=== PATIENT | female | born 2000 | race Two or more races ===

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

== ENCOUNTER 2021-08-12 13:57 | Emergency (ER) | payer OTHER ==
[2021-08-12 14:03] VITALS: BP 105/70; PULSE 91; TEMP 98; BMI 32.0
== END 2021-08-12 17:04 | disposition home or self-care (01) ==
LOC: JERFT 13:57
DX: K02.9 Dental caries, unspecified (principal)
CPT/HCPCS: 99283-25

== ENCOUNTER 2021-09-18 18:06 | Emergency (ER) | payer OTHER ==
[2021-09-18 19:00] VITALS: BP 120/72; PULSE 107; TEMP 98.1; BMI 31.4
[2021-09-19 13:07] LABS: SARS-CoV-2 NAA Not Detected (Not Detected)
== END 2021-09-18 20:43 | disposition home or self-care (01) ==
LOC: JER 18:06
DX: J00 Acute nasopharyngitis [common cold] (principal)
CPT/HCPCS: 87804; 99283-25; C9803; U0003; U0005

== ENCOUNTER 2022-03-21 21:05 | Emergency (ER) | payer OTHER ==
[2022-03-21 21:12] VITALS: BP 107/73; PULSE 71; RESP 19; TEMP 97.8; BMI 34.5
[2022-03-21] MEDS ORDERED: DEXAMETHASONE 4 MG TABLET (FP) PO ONE (23:04)
[2022-03-21] MEDS ORDERED: FAMOTIDINE 10 MG TABLET PO ONE (23:04)
[2022-03-21] MEDS ORDERED: diphenhydrAMINE HCL 25 MG CAPSULE (FP) PO ONE ×2 (23:04→23:21)
[2022-03-21] MEDS ORDERED: FAMOTIDINE 10 MG TABLET ONE (23:22)
[2022-03-21] MEDS ORDERED: DEXAMETHASONE 4 MG TABLET (FP) ONE (23:22)
== END 2022-03-21 23:53 | disposition home or self-care (01) ==
LOC: JER 21:05 → JERFT 21:05 → JER 23:53
DX: L50.9 Urticaria, unspecified (principal)
CPT/HCPCS: 99283-25

== ENCOUNTER 2022-03-28 10:42 | Emergency (ER) | payer OTHER ==
[2022-03-28 10:45] VITALS: BP 116/74; PULSE 97; RESP 18; TEMP 98.1; BMI 32.9
[2022-03-28] MEDS ORDERED: KETOROLAC TROMETHAMINE 30 MG/1 ML VIAL ONE (11:40)
[2022-03-28] MEDS ORDERED: KETOROLAC TROMETHAMINE 30 MG/1 ML VIAL IM ONE (12:16)
== END 2022-03-28 12:21 | disposition home or self-care (01) ==
LOC: JERFT 10:42
PROC: 3E0233Z Introduction of Anti-inflammatory into Muscle, Percutaneous Approach (ICD-10-PCS; principal; 2022-03-28)
DX: K08.89 Other specified disorders of teeth and supporting structures (principal)
CPT/HCPCS: 99284-25

== ENCOUNTER 2022-04-14 13:17 | Emergency (ER) | payer OTHER ==
[2022-04-14 13:41] VITALS: RESP 16; BMI 33.6
[2022-04-14 15:31] VITALS: BP 122/68; PULSE 101; TEMP 98.2
== END 2022-04-14 16:20 | disposition home or self-care (01) ==
LOC: JER 13:17
DX: B34.9 Viral infection, unspecified (principal)
CPT/HCPCS: 0241U-QW; 87651; 99283-25

== ENCOUNTER 2022-06-04 15:57 | Emergency (ER) | payer OTHER ==
[2022-06-04 16:25] VITALS: BP 125/71; PULSE 99; RESP 17; TEMP 97.8; BMI 33.6
[2022-06-04] MEDS ORDERED: diphenhydrAMINE HCL 25 MG CAPSULE (FP) PO ONE ×2 (17:05→17:06)
[2022-06-04] MEDS ORDERED: DEXAMETHASONE LIQUID 0.5 MG/5 ML PO ONE (17:05)
[2022-06-04] MEDS ORDERED: FAMOTIDINE 20 MG TABLET PO ONE (17:05)
[2022-06-04] MEDS ORDERED: DEXAMETHASONE SOD PHOSPHATE 10 MG/1 ML VIAL ONE (17:06)
[2022-06-04] MEDS ORDERED: FAMOTIDINE 20 MG TABLET ONE (17:06)
== END 2022-06-04 17:10 | disposition home or self-care (01) ==
LOC: JER 15:57
DX: L50.0 Allergic urticaria (principal)
CPT/HCPCS: 99283-25

== ENCOUNTER 2022-06-05 00:56 | Emergency (ER) | payer OTHER ==
[2022-06-05 01:02] VITALS: BP 118/66; PULSE 102; RESP 18; TEMP 97.7; BMI 31.8
[2022-06-05] MEDS ORDERED: diphenhydrAMINE HCL 25 MG CAPSULE (FP) PO ONE ×2 (02:17→02:20)
== END 2022-06-05 02:23 | disposition home or self-care (01) ==
LOC: JER 00:56
DX: L50.0 Allergic urticaria (principal)
CPT/HCPCS: 99283-25

== ENCOUNTER 2022-10-04 10:20 | Emergency (ER) | payer BC, OTHER ==
[2022-10-04 10:24] VITALS: BP 129/65; PULSE 90; RESP 20; TEMP 98; BMI 33.5
[2022-10-04] MEDS ORDERED: IBUPROFEN 600 MG TABLET (FP) PO ONE ×2 (11:30)
== END 2022-10-04 12:03 | disposition home or self-care (01) ==
LOC: JERFT 10:20
DX: K02.9 Dental caries, unspecified (principal); K08.89 Other specified disorders of teeth and supporting structures
CPT/HCPCS: 99283-25

== ENCOUNTER 2022-12-12 18:09 | Emergency (ER) | payer BC, OTHER ==
[2022-12-12 18:23] VITALS: RESP 17; BMI 47.2
[2022-12-12] MEDS ORDERED: LACTATED RINGERS SOLUTION 1000 ML INFUS.BAG IV ONE (19:15)
[2022-12-12] MEDS ORDERED: DEXAMETHASONE 4 MG TABLET (FP) PO ONE (19:37)
[2022-12-12 19:43] LABS: BASO % 0.1 % (0-2.0); EOS % 0.4 % (0-4.5); HEMATOCRIT 40.9 % (32.4-45.2); HEMOGLOBIN 14.4 GM/dL (10.7-15.3); LYMPH % 11.8 % (8-40); MCH 29.4 pg (25.7-33.7); MCHC 35.3 g/dl (32.0-36.0); MEAN CELL VOLUME 83.4 fl (80-96); MEAN PLT VOLUME 7.7 fl (7.5-11.1); MONO % 6.2 % (3.8-10.2); NEUT % 81.5 % (42.8-82.8); PLATELET COUNT 349 10^3/uL (134-434); RBC 4.91 M/mm3 (3.60-5.2); RDW 13.2 % (11.6-15.6); WHITE BLOOD COUNT 11.1 K/mm3 (4.0-10.0)
[2022-12-12] MEDS ORDERED: DEXAMETHASONE SOD PHOSPHATE 10 MG/1 ML VIAL ONE (19:46)
[2022-12-12 19:53] LABS: POTASSIUM 3.7 mmol/L (3.5-5.1)
[2022-12-12 19:55] LABS: BLOOD UREA NITROGEN 8.6 mg/dL (7-18); CALCIUM 8.7 mg/dL (8.5-10.1)
[2022-12-12 19:56] LABS: ALBUMIN 3.8 g/dl (3.4-5.0)
[2022-12-12 19:58] LABS: CREATININE 0.8 mg/dL (0.55-1.3)
[2022-12-12 20:01] LABS: BILIRUBIN,TOTAL 0.3 mg/dL (0.2-1); TOT PROT 8.7 g/dl (6.4-8.2)
[2022-12-12] MEDS ORDERED: ALBUTEROL SO4 0.083% IH SOL 2.5 MG/3 ML VIAL.NEB. NEB ONE ×2 (21:41→21:42)
[2022-12-12 21:42] VITALS: BP 135/81; PULSE 109; TEMP 98.5
== END 2022-12-12 22:49 | disposition home or self-care (01) ==
LOC: JER 18:09
DX: J45.21 Mild intermittent asthma with (acute) exacerbation (principal); R79.1 Abnormal coagulation profile; Z20.822 Contact with and (suspected) exposure to COVID-19
CPT/HCPCS: 0241U-QW; 36415; 71275-TC; 80053; 84443; 84703; 85025; 85379; 87651; 93005; 93010; 99285-25; Q9967

== ENCOUNTER 2023-05-31 11:13 | Emergency (ER) | payer BC, OTHER ==
[2023-05-31 11:22] VITALS: BP 103/71; PULSE 92; RESP 20; TEMP 97.7; BMI 38.5
== END 2023-05-31 13:05 | disposition home or self-care (01) ==
LOC: JER 11:13
DX: K08.89 Other specified disorders of teeth and supporting structures (principal); K04.7 Periapical abscess without sinus; K03.81 Cracked tooth; K05.10 Chronic gingivitis, plaque induced; R22.0 Localized swelling, mass and lump, head
CPT/HCPCS: 99283-25

== ENCOUNTER 2023-11-25 08:09 | Emergency (ER) | payer BC, OTHER ==
[2023-11-25 08:14] VITALS: BP 136/77; PULSE 86; RESP 20; TEMP 97.7; BMI 39.9
[2023-11-25] MEDS ORDERED: AMOX TR/POT CLAV 875MG/125MG TABLETS (FP) ONE (09:23)
[2023-11-25] MEDS: AMOX TR/POT CLAV 875MG/125MG TABLETS (FP) PO ONE (09:23)
== END 2023-11-25 10:30 | disposition home or self-care (01) ==
LOC: JER 08:09
DX: R22.0 Localized swelling, mass and lump, head (principal); K02.9 Dental caries, unspecified; K08.89 Other specified disorders of teeth and supporting structures
CPT/HCPCS: 99283-25